=== PATIENT | female | born 1980 | race African-American/Black ===

== ENCOUNTER 2017-09-09 22:43 | Emergency (ER) | payer OTHER ==
[~2017-09-09] VITALS: Ht 172.7 cm; Wt 55.3 kg
[~2017-09-09 22:43] MED LIST: AMOXICILLIN 50500 MG PO; FLEXERIL PO; IBUPROFEN 800800 M1 PO; IBUPROFEN 800800 MG PO; KEFLEX500 MG PO; LIDOCAINE VISC100 M1 SWISH&SPIT; MEDROLDOSEPACK PO; NOHOMEMEDICATIONS; NORCO 5-325 TA1 EACH PO; PENICILLIN VK500 MG PO; PERCOCET PO; ULTRAM 50MG TAB50 MG PO; VICODIN 5-5001 EACH PO; ZOFRAN ODT4 MG SUBLING
[2017-09-09 22:48] VITALS: BP 133/75
== END 2017-09-09 23:11 | disposition home or self-care (01) ==
LOC: M.ERS 22:43
DX: M67.431 Ganglion, right wrist (principal); F17.210 Nicotine dependence, cigarettes, uncomplicated; Z98.890 Other specified postprocedural states

== ENCOUNTER 2020-12-13 03:54 | Emergency (ER) | payer OTHER ==
[~2020-12-13] VITALS: Ht 172.7 cm; Wt 55.3 kg
[2020-12-13] MEDS ORDERED: MEDROLDOSEPACK PO (05:08)
[2020-12-13] MEDS ORDERED: TRAMADOL 50 MG50 MG PO (05:08)
[2020-12-13] MEDS ORDERED: FLEXERIL PO (05:08)
[2020-12-13 05:19] VITALS: BP 135/84
== END 2020-12-13 05:19 | disposition home or self-care (01) ==
LOC: M.ERS 03:54
DX: M54.6 Pain in thoracic spine (principal); F17.210 Nicotine dependence, cigarettes, uncomplicated; Z98.51 Tubal ligation status